=== PATIENT | male | born 1980 | race American Indian/Alaskan Native ===

== ENCOUNTER 2021-09-11 19:57 | Emergency (ER) | payer SELFPAY ==
[2021-09-11] MEDS ORDERED: LIDOCAINE (1%) 10 MG/1 ML VIAL 20 ML MDV INFILTRATI ONE (22:44)
--- NOTE | 2021-09-11 23:22 | Emergency Department Report ---
Abscess Boil HPI - HPI Chief Complaint: Skin/Abscess/Foreign Body Stated Complaint: CYST ON MY NECK Time Seen by Provider: 09/11/21 22:14 Duration: >1 Week Location: Neck Severity: Moderate History: Yes Pain, No Fever, No Purulent Drainage, No Numbness, No Foreign Body, No Previous History, No Insect Bite HPI: neck swelling for the last 1 week getting bigger Home Medications: Previous Rx's Medication Instructions Recorded Last Taken Type Clindamycin [Clindamycin CAP] 300 mg PO Q8H #30 cap 09/11/21 Unknown Rx Ketorolac [Toradol] 10 mg PO Q6H PRN #20 tablet 09/11/21 Unknown Rx Allergies/Adverse Reactions: Allergies Allergy/AdvReac Type Severity Reaction Status Date / Time No Known Allergies Allergy Verified 09/11/21 22:44 ED Review of Systems ROS: Stated complaint: CYST ON MY NECK Other details as noted in HPI Constitutional: denies: chills, fever Eyes: denies: eye pain, eye discharge, vision change ENT: denies: ear pain, throat pain Respiratory: denies: cough, shortness of breath, wheezing Cardiovascular: denies: chest pain, palpitations Endocrine: no symptoms reported Gastrointestinal: denies: abdominal pain, nausea, diarrhea Genitourinary: denies: urgency, dysuria Musculoskeletal: denies: back pain, joint swelling, arthralgia Skin: denies: rash, lesions Neurological: denies: headache, weakness, paresthesias Psychiatric: denies: anxiety, depression Hematological/Lymphatic: denies: easy bleeding, easy bruising ED Past Medical Hx - Past Medical History Previous Medical History?: No - Surgical History Past Surgical History?: No - Medications Home Medications: Home Medications Medication Instructions Recorded Confirmed Last Taken Type Clindamycin [Clindamycin CAP] 300 mg PO Q8H #30 cap 09/11/21 Unknown Rx Ketorolac [Toradol] 10 mg PO Q6H PRN #20 tablet 09/11/21 Unknown Rx ED Abscess Boil Physical Exam - Exam General: Vital signs noted. No distress. Alert and acting appropriately. Size: >5 cm Exam: Yes Tenderness, Yes Fluctuance, Yes Normal Neurologic Exam, Yes Normal Circulation, No Surrounding Cellulites/Erythema, No Lymphangitis, No Crepitation, No Heart Murmur ED Course Vital Signs 09/11/21 21:22 Temperature 99.2 F Pulse Rate 79 Respiratory 16 Rate Blood Pressure 155/91 [Right] O2 Sat by Pulse 98 Oximetry Critical care attestation.: If time is entered above; I have spent that time in minutes in the direct care of this critically ill patient, excluding procedure time. ED Disposition Clinical Impression: Neck abscess Disposition: HOME / SELF CARE / HOMELESS Is pt being admited?: No Does the pt Need Aspirin: No Condition: Stable Instructions: Incision and Drainage, Care After Additional Instructions: return in 48 hours for removal of packing Prescriptions: Clindamycin [Clindamycin CAP] 300 mg PO Q8H #30 cap Ketorolac [Toradol] 10 mg PO Q6H PRN #20 tablet PRN Reason: Pain Date of procedure: 09/11/21 Pre-op diagnosis: left neck abscess Post-op diagnosis: same Location of lesion: neck left side Anesthesia: Lidocaine 1 % Volume of lidocaine (mL): 10 Technique: incision Needle size (gauge): 21 Results: purulent material Culture sent: No Packing applied: Yes Complications: none
[2021-09-12 04:53] VITALS: BP 163/92
== END 2021-09-12 00:05 | disposition home or self-care (01) ==
LOC: ED 19:57
DX: L02.11 Cutaneous abscess of neck (principal)
CPT/HCPCS: 99282; J3490

== ENCOUNTER 2021-09-14 14:50 | Emergency (ER) | payer SELFPAY ==
[2021-09-14 16:13] VITALS: BP 171/95
--- NOTE | 2021-09-14 19:11 | Emergency Department Report ---
ED General Adult HPI - General Chief complaint: Laceration/Recheck/Suture Stated complaint: SUTURE REMOVAL Time Seen by Provider: 09/14/21 18:46 Source: patient Mode of arrival: Ambulatory Limitations: No Limitations - History of Present Illness Initial comments: 41-year-old male presents to the ER today for packing removal. He states that he had an I&D to the lateral aspect of his left neck about 3 days ago. He states that he has been compliant with taking his clindamycin. He states that the area still feels hard but overall not as painful and swollen. He denies any fever since he was last seen. He denies any difficulty turning his neck. He reports no additional symptoms at this time. Complaint: Packing removal -: days(s) (3) - Related Data Previous Rx's Medication Instructions Recorded Last Taken Type Clindamycin [Clindamycin CAP] 300 mg PO Q8H #30 cap 09/11/21 Unknown Rx Ketorolac [Toradol] 10 mg PO Q6H PRN #20 tablet 09/11/21 Unknown Rx Allergies Allergy/AdvReac Type Severity Reaction Status Date / Time No Known Allergies Allergy Verified 09/11/21 22:44 ED Review of Systems ROS: Stated complaint: SUTURE REMOVAL Other details as noted in HPI Comment: All other systems reviewed and negative Constitutional: denies: chills, fever Eyes: denies: eye pain, eye discharge, vision change ENT: denies: ear pain, throat pain, dental pain, hearing loss, epistaxis, congestion Respiratory: denies: cough, shortness of breath, wheezing Cardiovascular: denies: chest pain, palpitations, dyspnea on exertion, edema, syncope, paroxysmal nocturnal dyspnea Gastrointestinal: denies: abdominal pain, nausea, diarrhea, constipation, hematemesis, hematochezia Genitourinary: denies: urgency, dysuria, frequency, hematuria, discharge, testicular pain, testicular mass Musculoskeletal: denies: back pain, joint swelling, arthralgia Skin: other (abscess left lat neck s/p I&D) Neurological: denies: headache, weakness, numbness, paresthesias, confusion, abnormal gait, vertigo Psychiatric: denies: anxiety, depression, auditory hallucinations, visual hallucinations, homicidal thoughts, suicidal thoughts Hematological/Lymphatic: denies: easy bleeding, easy bruising, swollen glands ED Past Medical Hx - Past Medical History Previous Medical History?: No - Surgical History Past Surgical History?: No - Medications Home Medications: Home Medications Medication Instructions Recorded Confirmed Last Taken Type Clindamycin [Clindamycin CAP] 300 mg PO Q8H #30 cap 09/11/21 Unknown Rx Ketorolac [Toradol] 10 mg PO Q6H PRN #20 tablet 09/11/21 Unknown Rx ED Physical Exam - General Limitations: No Limitations General appearance: alert, in no apparent distress - Head Head exam: Present: atraumatic, normocephalic, normal inspection - Eye Eye exam: Present: normal appearance, PERRL, EOMI Pupils: Present: normal accommodation - Cardiovascular Cardiovascular Exam: Present: regular rate, normal rhythm, normal heart sounds - Neurological Exam Neurological exam: Present: alert, oriented X3, CN II-XII intact, normal gait - Psychiatric Psychiatric exam: Present: normal affect, normal mood - Skin Skin exam: Present: other (Incised abscess noted to the left lateral neck. Packing still in place and removed by me. Small amount of drainage still noted and expressed by me but then eventually stopped. There is some mild induration around the area but overall it appears to be healing well without any cellulitis.) ED Course Vital Signs 09/14/21 16:11 Temperature 98.3 F Pulse Rate 71 Respiratory 17 Rate Blood Pressure 171/95 O2 Sat by Pulse 99 Oximetry Critical care attestation.: If time is entered above; I have spent that time in minutes in the direct care of this critically ill patient, excluding procedure time. ED Disposition Clinical Impression: Wound check, abscess Disposition: HOME / SELF CARE / HOMELESS Is pt being admited?: No Does the pt Need Aspirin: No Condition: Stable Instructions: Wound Care, Adult Additional Instructions: Keep the area clean daily with soap and water. Dry well after each cleaning and you can cover the area with a dressing. You can also allow it to air dry at times. Do not use peroxide or alcohol. Continue and complete all of your antibiotics. You can follow-up with the general surgeon listed on your discharge instructions for further evaluation of the area. Return to the ER if your symptoms worsens in any way. Referrals: MAZIN ARIZMENDI DO [Staff Physician] - 3-5 Days (General surgeon) PRIMARY CARE, [Primary Care Provider] - 3-5 Days Time of Disposition: 19:11
== END 2021-09-14 20:02 | disposition home or self-care (01) ==
LOC: ED 14:50
DX: Z48.01 Encounter for change or removal of surgical wound dressing (principal); Z53.21 Procedure and treatment not carried out due to patient leaving prior to being seen by health care provider